=== PATIENT | male | born 1975 | race Two or more races ===

== ENCOUNTER 2018-08-21 20:17 | Inpatient (IN) | payer OTHER ==
[~2018-08-21] VITALS: Ht 180.3 cm; Wt 81.8 kg
[2018-08-21] MEDS ORDERED: IV NS 0.9% 1,000 ML BAG IV ONE (20:30)
[2018-08-21 20:34] LABS: APPEARANCE,URINE Clear (CLEAR); BILIRUBIN,URINE Negative (NEGATIVE); BLOOD, URINE Negative Ery/uL (NEGATIVE); COLOR,URINE Dark (YELLOW); KETONES,URINE Negative (NEGATIVE); LEUKOCYTE ESTERASE ,URINE Negative (NEGATIVE); NITRITE, URINE Negative (NEGATIVE); PH,URINE 5.5 (5.0-8.0); PROTEIN,URINE Trace mg/dl (NEGATIVE); UGLUCOSE Negative (NEGATIVE); UROBILINOGEN,URINE 0.2 EU/dL (0.2)
[2018-08-21 20:44] LABS: BASOPHILS % (AUTO) 0.1 % (0.0-2.0); EOSINOPHILS % (AUTO) 0.2 % (0.0-6.0); HEMATOCRIT 41 % (39-51); HEMOGLOBIN 13.9 g/dL (13.5-17.5); LYMPHOCYTES # (AUTO) 2.6 /CMM (0.8-4.8); LYMPHOCYTES % (AUTO) 48.4 % (20.0-44.0); MEAN CORPUSCULAR HGB CONC 34 g/dl (31.0-36.0); MEAN CORPUSCULAR VOLUME 89 fL (80-96); MONOCYTES # (AUTO) 0.4 /CMM (0.1-1.30); MONOCYTES % (AUTO) 7.5 % (2.0-12.0); NEUTROPHILS # (AUTO) 2.4 /CMM (1.8-8.9); NEUTROPHILS % (AUTO) 43.8 % (43.0-81.0); PLATELET COUNT (AUTO) 179 /CMM (150-450); RED BLOOD CELL COUNT(AUTO) 4.59 MIL/uL (4.5-6.0); WHITE BLOOD COUNT (AUTO) 5.4 K/uL (4.3-11.0)
[2018-08-21 21:09] LABS: CALCIUM, SERUM 8.9 mg/dL (8.5-10.1); CARBON DIOXIDE 26 mmol/L (21-32); CHLORIDE 104 mmol/L (98-107); CREATININE 1.3 mg/dL (0.6-1.3); GLUCOSE 136 mg/dL (74-106); POTASSIUM 3.9 mmol/L (3.5-5.1); SODIUM SERUM 141 mmol/L (136-145); UREA NITROGEN, BLOOD 21 mg/dL (7-18)
[2018-08-21 21:22] LABS: ALANINE AMINOTRANSFERASE 27 U/L (12-78); ALBUMIN 3.8 g/dL (3.4-5.0); ALCOHOL, BLOOD < 3 mg/dL (0-0); ALKALINE PHOSPHATASE 62 U/L (46-116); ASPARTATE AMINOTRANSFERASE 32 U/L (15-37); BILIRUBIN,DIRECT 0.1 mg/dL (0.0-0.2); BILIRUBIN,TOTAL 0.4 mg/dL (0.2-1.0); TOTAL PROTEIN, SERUM 7.4 g/dL (6.4-8.2)
[2018-08-21 21:27] LABS: SALICYLATE 1.4 mg/dL (2.8-20.0)
[2018-08-21 21:29] LABS: ACETAMINOPHEN 379 ug/ml (10-30)
[2018-08-21] MEDS ORDERED: ACETYLCYSTEINE IV 6,000 MG/30 ML VIAL IV ONE (21:39)
[2018-08-21 21:52] LABS: RBC,URINE 0-2 /HPF (0-2)
[2018-08-21 21:53] LABS: BACTERIA,URINE Rare /HPF (None Seen); MUCUS,URINE Few /LPF (None Seen); SQUAMOUS EPITHELIAL CELL,UR Few /HPF (None Seen); URINE AMORPHOUS URATE Few /HPF (None Seen); WBC,URINE 0-2 /HPF (0-3)
[2018-08-21] MEDS: ACETYLCYSTEINE 20% ORAL SOLN 6,000 MG/30 ML VIAL PO ONE ×2 (22:00→22:02)
[2018-08-21] MEDS ORDERED: ACETYLCYSTEINE 20% ORAL SOLN 6,000 MG/30 ML VIAL PO ONE (22:00)
[2018-08-21] MEDS ORDERED: LAMO200T2 PO (22:51)
[2018-08-21] MEDS ORDERED: DULO30CA2 PO (22:51)
[2018-08-21] MEDS ORDERED: QUET200T PO ×2 (22:51)
[2018-08-21 23:00] VITALS: BP 96/69
[2018-08-21 23:30] VITALS: BP 92/52
[2018-08-21] MEDS ORDERED: ONDANSETRON HCL/PF 4 MG/2 ML VIAL IVP PRN (23:30)
[2018-08-21] MEDS: IV D5/ 0.9% NACL 1,000 ML IV PRN (23:46)
[2018-08-22] VITALS (33 sets, daily range): BP systolic 89–158; BP diastolic 47–108
[2018-08-22] MEDS ORDERED: ACETYLCYSTEINE 20% SOLN 800 MG/4 ML VIAL ONE ×3 (01:43→23:53)
[2018-08-22] MEDS ORDERED: ACETYLCYSTEINE 20% ORAL SOLN 6,000 MG/30 ML VIAL PO SCH (02:00)
[2018-08-22] MEDS ORDERED: ACETYLCYSTEINE IV 12,000 MG in IV D5W 200 ML IV ONE (02:00)
[2018-08-22] MEDS ORDERED: ACETYLCYSTEINE IV 6,000 MG/30 ML VIAL IV ONE (02:15)
[2018-08-22] MEDS ORDERED: ACETYLCYSTEINE IV 4,000 MG in IV D5W 500 ML IV ONE (03:00)
[2018-08-22 04:46] LABS: BASOPHILS % (AUTO) 0.2 % (0.0-2.0); HEMATOCRIT 38 % (39-51); HEMOGLOBIN 13.1 g/dL (13.5-17.5); LYMPHOCYTES # (AUTO) 1.8 /CMM (0.8-4.8); LYMPHOCYTES % (AUTO) 38.7 % (20.0-44.0); MEAN CORPUSCULAR HGB CONC 34 g/dl (31.0-36.0); MEAN CORPUSCULAR VOLUME 89 fL (80-96); MONOCYTES # (AUTO) 0.3 /CMM (0.1-1.30); MONOCYTES % (AUTO) 7.2 % (2.0-12.0); NEUTROPHILS # (AUTO) 2.6 /CMM (1.8-8.9); NEUTROPHILS % (AUTO) 53.9 % (43.0-81.0); PLATELET COUNT (AUTO) 164 /CMM (150-450); RED BLOOD CELL COUNT(AUTO) 4.26 MIL/uL (4.5-6.0); WHITE BLOOD COUNT (AUTO) 4.8 K/uL (4.3-11.0)
[2018-08-22 05:00] LABS: ALBUMIN 3.1 g/dL (3.4-5.0); BILIRUBIN,TOTAL 0.5 mg/dL (0.2-1.0); CALCIUM, SERUM 8.1 mg/dL (8.5-10.1); CREATININE 1.1 mg/dL (0.6-1.3); PHOSPHORUS 1.8 mg/dL (2.5-4.9); POTASSIUM 3.9 mmol/L (3.5-5.1); TOTAL PROTEIN, SERUM 6.4 g/dL (6.4-8.2)
[2018-08-22 05:15] LABS: THYROID STIMULATING HORMONE 1.446 uIU/mL (0.358-3.74)
[2018-08-22] MEDS ORDERED: ACETYLCYSTEINE IV 8,000 MG in IV D5W 1,000 ML IV ONE (07:00)
[2018-08-22] MEDS: FAMOTIDINE/PF INJ 20 MG/2 ML VIAL IV SCH ×2 (10:14→21:21)
[2018-08-22] MEDS ORDERED: Sodium Phosphate 15 MMOL in IV D5W 250 ML IV ONE (13:00)
[2018-08-22] MEDS: ENSURE ENLIVE CHOC 237 ML CAN PO SCH (19:00)
[2018-08-22] MEDS: IV D5/ 0.9% NACL 1,000 ML IV PRN (19:48)
[2018-08-22] MEDS: QUETIAPINE FUMARATE 100 MG TABLET PO SCH (21:21)
[2018-08-22 22:48] LABS: BILIRUBIN,DIRECT 0.2 mg/dL (0.0-0.2); BILIRUBIN,TOTAL 0.8 mg/dL (0.2-1.0); TOTAL PROTEIN, SERUM 6.3 g/dL (6.4-8.2)
[2018-08-23] VITALS (24 sets, daily range): BP systolic 104–148; BP diastolic 48–111
[2018-08-23] MEDS ORDERED: ACETYLCYSTEINE IV 6,000 MG/30 ML VIAL IV ONE ×2 (00:12→18:30)
[2018-08-23 05:41] LABS: CALCIUM, SERUM 7.8 mg/dL (8.5-10.1); CREATININE 1.1 mg/dL (0.6-1.3); PHOSPHORUS 3.2 mg/dL (2.5-4.9); POTASSIUM 3.6 mmol/L (3.5-5.1)
[2018-08-23] MEDS: IV D5/ 0.9% NACL 1,000 ML IV PRN ×2 (06:08→18:49)
[2018-08-23] MEDS: ENSURE ENLIVE CHOC 237 ML CAN PO SCH ×3 (09:18→17:00)
[2018-08-23] MEDS: FAMOTIDINE/PF INJ 20 MG/2 ML VIAL IV SCH ×2 (09:21→21:24)
[2018-08-23] MEDS: LORAZEPAM INJ 2 MG/ML VIAL IV PRN (12:49)
[2018-08-23] MEDS: QUETIAPINE FUMARATE 100 MG TABLET PO SCH ×2 (15:09→21:24)
[2018-08-23 16:12] LABS: ALBUMIN 2.9 g/dL (3.4-5.0); BILIRUBIN,DIRECT 0.1 mg/dL (0.0-0.2); BILIRUBIN,TOTAL 0.6 mg/dL (0.2-1.0)
[2018-08-23] MEDS ORDERED: ACETYLCYSTEINE IV 8,000 MG in IV D5W 1,000 ML IV ONE ×3 (19:00)
[2018-08-23] MEDS ORDERED: FINA5TAB11 PO (21:20)
[2018-08-23] MEDS ORDERED: BICT1TAB PO (21:20)
[2018-08-23] MEDS ORDERED: SIME125C81 PO (21:20)
[2018-08-23] MEDS ORDERED: HYDR-3026 PO (21:20)
[2018-08-23] MEDS ORDERED: POLY30DR EACHEYE (21:20)
[2018-08-23] MEDS ORDERED: ONDA4TAB5 PO (21:20)
[2018-08-24] VITALS (8 sets, daily range): BP systolic 99–135; BP diastolic 71–85
[2018-08-24] MEDS: LORAZEPAM INJ 2 MG/ML VIAL IV PRN (02:44)
[2018-08-24] MEDS: QUETIAPINE FUMARATE 100 MG TABLET PO SCH ×2 (08:54→21:30)
[2018-08-24] MEDS: FAMOTIDINE/PF INJ 20 MG/2 ML VIAL IV SCH ×2 (08:54→21:29)
[2018-08-24] MEDS: ENSURE ENLIVE CHOC 237 ML CAN PO SCH ×3 (08:57→16:02)
[2018-08-24 11:17] LABS: BASOPHILS % (AUTO) 0.7 % (0.0-2.0); EOSINOPHILS % (AUTO) 1.7 % (0.0-6.0); HEMATOCRIT 35 % (39-51); HEMOGLOBIN 12.1 g/dL (13.5-17.5); LYMPHOCYTES # (AUTO) 0.8 /CMM (0.8-4.8); LYMPHOCYTES % (AUTO) 32.9 % (20.0-44.0); MEAN CORPUSCULAR HGB CONC 35 g/dl (31.0-36.0); MEAN CORPUSCULAR VOLUME 88 fL (80-96); MONOCYTES # (AUTO) 0.2 /CMM (0.1-1.30); MONOCYTES % (AUTO) 7.8 % (2.0-12.0); NEUTROPHILS # (AUTO) 1.5 /CMM (1.8-8.9); NEUTROPHILS % (AUTO) 56.9 % (43.0-81.0); PLATELET COUNT (AUTO) 143 /CMM (150-450); RED BLOOD CELL COUNT(AUTO) 3.99 MIL/uL (4.5-6.0); WHITE BLOOD COUNT (AUTO) 2.6 K/uL (4.3-11.0)
[2018-08-24 11:25] LABS: POTASSIUM 4.2 mmol/L (3.5-5.1)
[2018-08-24 11:31] LABS: ALBUMIN 3.1 g/dL (3.4-5.0); BILIRUBIN,DIRECT 0.2 mg/dL (0.0-0.2); BILIRUBIN,TOTAL 0.5 mg/dL (0.2-1.0); TOTAL PROTEIN, SERUM 6.2 g/dL (6.4-8.2)
[2018-08-24 12:54] LABS: EOSINOPHILS % (MANUAL) 3 % (0-4); LYMPHOCYTES % (MANUAL) 27 % (16-48); MONOCYTES % (MANUAL) 4 % (0-11.0); NEUTROPHILS % (MANUAL) 66 (42-76)
[2018-08-24 22:38] LABS: ALANINE AMINOTRANSFERASE 252 U/L (12-78); ASPARTATE AMINOTRANSFERASE 194 U/L (15-37)
[2018-08-25] MEDS ORDERED: ACETYLCYSTEINE IV 8,000 MG in IV D5W 1,000 ML IV SCH (00:30)
[2018-08-25] MEDS ORDERED: ACETYLCYSTEINE IV 6,000 MG/30 ML VIAL IV ONE (00:50)
[2018-08-25 06:46] LABS: BASOPHILS % (AUTO) 0.6 % (0.0-2.0); HEMATOCRIT 37 % (39-51); HEMOGLOBIN 12.8 g/dL (13.5-17.5); LYMPHOCYTES # (AUTO) 1.1 /CMM (0.8-4.8); LYMPHOCYTES % (AUTO) 50.2 % (20.0-44.0); MEAN CORPUSCULAR HGB CONC 35 g/dl (31.0-36.0); MEAN CORPUSCULAR VOLUME 88 fL (80-96); MONOCYTES # (AUTO) 0.2 /CMM (0.1-1.30); MONOCYTES % (AUTO) 10.8 % (2.0-12.0); NEUTROPHILS # (AUTO) 0.8 /CMM (1.8-8.9); NEUTROPHILS % (AUTO) 35.4 % (43.0-81.0); PLATELET COUNT (AUTO) 152 /CMM (150-450); RED BLOOD CELL COUNT(AUTO) 4.21 MIL/uL (4.5-6.0); WHITE BLOOD COUNT (AUTO) 2.1 K/uL (4.3-11.0)
[2018-08-25 06:51] LABS: CALCIUM, SERUM 8.8 mg/dL (8.5-10.1); POTASSIUM 3.7 mmol/L (3.5-5.1)
[2018-08-25 07:01] LABS: BILIRUBIN,DIRECT 0.1 mg/dL (0.0-0.2); BILIRUBIN,TOTAL 0.4 mg/dL (0.2-1.0); MAGNESIUM 1.6 mg/dL (1.8-2.4); PHOSPHORUS 3.7 mg/dL (2.5-4.9); TOTAL PROTEIN, SERUM 6.4 g/dL (6.4-8.2)
[2018-08-25 08:00] VITALS: BP 123/84
[2018-08-25] MEDS: FAMOTIDINE/PF INJ 20 MG/2 ML VIAL IV SCH ×2 (09:15→20:31)
[2018-08-25] MEDS: ENSURE ENLIVE CHOC 237 ML CAN PO SCH ×3 (09:15→16:56)
[2018-08-25] MEDS: QUETIAPINE FUMARATE 100 MG TABLET PO SCH ×2 (09:17→21:43)
[2018-08-25] MEDS: NICOTINE PATCH (21MG) 21 MG PATCH.TD24 TD SCH (10:17)
[2018-08-25] MEDS: Magnesium 1GM/D5W 100ML PREMIX 100 ML IV SCH ×2 (11:58→13:02)
[2018-08-25] MEDS ORDERED: LamoTRIgine 100 MG TABLET PO SCH (12:30)
[2018-08-25] MEDS: LamoTRIgine 25 MG TABLET PO SCH (13:10)
[2018-08-25 16:00] VITALS: BP 132/74
[2018-08-25] MEDS ORDERED: ACETYLCYSTEINE IV 4,000 MG in IV D5W 500 ML IV SCH (16:00)
[2018-08-25 20:00] VITALS: BP 132/80
[2018-08-25] MEDS: BIKTARVY PO SCH (21:43)
[2018-08-25 23:41] LABS: ALBUMIN 3.2 g/dL (3.4-5.0); BILIRUBIN,DIRECT 0.1 mg/dL (0.0-0.2); BILIRUBIN,TOTAL 0.4 mg/dL (0.2-1.0); TOTAL PROTEIN, SERUM 6.7 g/dL (6.4-8.2)
[2018-08-26 07:12] LABS: BASOPHILS % (AUTO) 0.5 % (0.0-2.0); EOSINOPHILS % (AUTO) 1.8 % (0.0-6.0); HEMATOCRIT 39 % (39-51); HEMOGLOBIN 13.2 g/dL (13.5-17.5); LYMPHOCYTES # (AUTO) 1.4 /CMM (0.8-4.8); LYMPHOCYTES % (AUTO) 47.1 % (20.0-44.0); MEAN CORPUSCULAR HGB CONC 34 g/dl (31.0-36.0); MEAN CORPUSCULAR VOLUME 88 fL (80-96); MONOCYTES # (AUTO) 0.4 /CMM (0.1-1.30); MONOCYTES % (AUTO) 12.7 % (2.0-12.0); NEUTROPHILS # (AUTO) 1.1 /CMM (1.8-8.9); NEUTROPHILS % (AUTO) 37.9 % (43.0-81.0); PLATELET COUNT (AUTO) 172 /CMM (150-450); RED BLOOD CELL COUNT(AUTO) 4.42 MIL/uL (4.5-6.0); WHITE BLOOD COUNT (AUTO) 2.9 K/uL (4.3-11.0)
[2018-08-26 07:31] LABS: ALBUMIN 3.4 g/dL (3.4-5.0); BILIRUBIN,DIRECT 0.1 mg/dL (0.0-0.2); BILIRUBIN,TOTAL 0.4 mg/dL (0.2-1.0); CALCIUM, SERUM 9.3 mg/dL (8.5-10.1); CREATININE 1.3 mg/dL (0.6-1.3); MAGNESIUM 1.9 mg/dL (1.8-2.4); POTASSIUM 4.1 mmol/L (3.5-5.1); TOTAL PROTEIN, SERUM 7.1 g/dL (6.4-8.2)
[2018-08-26 08:00] VITALS: BP 114/74
[2018-08-26] MEDS: FAMOTIDINE/PF INJ 20 MG/2 ML VIAL IV SCH ×2 (08:30→21:13)
[2018-08-26] MEDS: ENSURE ENLIVE CHOC 237 ML CAN PO SCH ×3 (08:30→17:31)
[2018-08-26] MEDS: LamoTRIgine 25 MG TABLET PO SCH (08:31)
[2018-08-26] MEDS: NICOTINE PATCH (21MG) 21 MG PATCH.TD24 TD SCH (08:32)
[2018-08-26] MEDS: QUETIAPINE FUMARATE 100 MG TABLET PO SCH ×2 (08:32→21:14)
[2018-08-26 16:00] VITALS: BP 128/81
[2018-08-26 20:00] VITALS: BP 134/77
[2018-08-26 20:10] VITALS: BP 134/77
[2018-08-26] MEDS: BIKTARVY PO SCH (21:14)
[2018-08-26] MEDS: MORPHINE SULFATE INJ 2 MG/ML DISP.SYRIN IV PRN (21:22)
[2018-08-27] MEDS: MORPHINE SULFATE INJ 2 MG/ML DISP.SYRIN IV PRN ×2 (03:59→08:57)
[2018-08-27 08:40] LABS: ALBUMIN 3.7 g/dL (3.4-5.0); BILIRUBIN,DIRECT 0.1 mg/dL (0.0-0.2); BILIRUBIN,TOTAL 0.5 mg/dL (0.2-1.0); TOTAL PROTEIN, SERUM 7.7 g/dL (6.4-8.2)
[2018-08-27] MEDS: NICOTINE PATCH (21MG) 21 MG PATCH.TD24 TD SCH ×2 (09:00→09:01)
[2018-08-27] MEDS: QUETIAPINE FUMARATE 100 MG TABLET PO SCH (09:01)
[2018-08-27] MEDS: LamoTRIgine 25 MG TABLET PO SCH (09:01)
[2018-08-27] MEDS: FAMOTIDINE/PF INJ 20 MG/2 ML VIAL IV SCH (09:01)
[2018-08-27] MEDS: ENSURE ENLIVE CHOC 237 ML CAN PO SCH ×2 (09:02→12:02)
[2018-08-27] MEDS: IV D5/ 0.9% NACL 1,000 ML IV PRN (10:06)
[2018-08-27 13:43] VITALS: BP 113/66
[2018-08-27] MEDS ORDERED: LACT-246 PO (17:07)
[2018-08-27] MEDS ORDERED: NICO-676 TD (17:07)
[2018-09-08] MEDS ORDERED: LamoTRIgine 25 MG TABLET PO SCH (09:00)
[2018-09-22] MEDS ORDERED: LamoTRIgine 100 MG TABLET PO SCH (09:00)
[2018-09-29] MEDS ORDERED: LamoTRIgine 100 MG TABLET PO SCH (09:00)
[2018-10-06] MEDS ORDERED: LamoTRIgine 100 MG TABLET PO SCH (09:00)
== END 2018-08-27 15:41 | DRG 917 ==
LOC: ER 20:17 → ICU 22:25 → MED 08-24 04:03
PROVIDERS: ADMIT Internal Medicine; ATTEND Internal Medicine
DX: T39.1X2A Poisoning by 4-Aminophenol derivatives, intentional self-harm, initial encounter (principal); G92 Toxic encephalopathy; N17.0 Acute kidney failure with tubular necrosis; Y92.89 Other specified places as the place of occurrence of the external cause; F31.9 Bipolar disorder, unspecified; F25.9 Schizoaffective disorder, unspecified; E66.9 Obesity, unspecified; Z68.34 Body mass index [BMI] 34.0-34.9, adult; Z91.5 Personal history of self-harm; F50.9 Eating disorder, unspecified; F41.9 Anxiety disorder, unspecified; G40.909 Epilepsy, unspecified, not intractable, without status epilepticus; R74.0 Nonspecific elevation of levels of transaminase and lactic acid dehydrogenase [LDH]
CPT/HCPCS: 36415; 80048-TC; 80053-TC; 80061-TC; 80076-TC; 80305; 81000-TC; 82140-TC; 83735-TC; 84100-TC; 84443-TC; 84450-TC; 84460-TC; 85025-TC; 85610-TC; 87081-TC; A9563; G0378; G0480; J0132; J2060; J2270; J2405; J3475; J3490; J7030; J7042; J7060; J7070

== ENCOUNTER 2018-08-27 14:23 | Inpatient (IN) | payer OTHER ==
[~2018-08-27] VITALS: Ht 180.3 cm; Wt 70.3 kg
[~2018-08-27 14:23] MED LIST: BICT1TAB PO; DULO30CA2 PO; FINA5TAB11 PO; HYDR-3026 PO; LAMO200T2 PO; ONDA4TAB5 PO; POLY30DR EACHEYE; QUET200T PO; SIME125C81 PO
[2018-08-27] MEDS ORDERED: ACETAMINOPHEN 325 MG TABLET PO PRN (17:00)
[2018-08-27] MEDS ORDERED: MAGNESIUM HYDROXIDE 30 ML UDC PO PRN (17:00)
[2018-08-27] MEDS ORDERED: MAG HYDROX/AL HYDROX/SIMETH 30 ML UDC PO PRN (17:00)
[2018-08-27] MEDS ORDERED: NICO-676 TD (17:07)
[2018-08-27] MEDS ORDERED: LACT-246 PO (17:07)
[2018-08-27 17:59] VITALS: BP 122/56
--- NOTE | 2018-08-27 18:25 | NUR ---
ANODE WORKER NOTE:PATIENT IS A 43 YEAR OLD MALE BROUGHT IN TO GPS ON A 5250 DTS. HOLD STATES, "PATIENT WITH BIPOLAR ADMITTED DUE TO TYLENOL OD, WAS IN ICU". PATIENT DENIES ANY SI/HI, VAH AT THIS ANTHONY. PATIENT IS DEPRESSED WITH A BLUNTED, FLAT AFFECT. ALERT AND ORIENTED X3, ABLE TO FOLLOW COMMANDS. AMBULATORY. ABLE TO CONCENTRATE ON TOPICS AND CONVERSATION. CLEAR SPEECH. APPROPRIATE APPEARANCE. PATIENT IS COMPLIANT WITH PLAN OF CARE. SKIN INTACT. VSS. NO ACUTE DISTRESS NOTED. NO COMPLAINTS. UPON FACE TO FACE ASSESSMENT, PATIENT HANDBOOK WAS GIVEN WITH PATIENT RIGHTS AND GUIDE TO PRESCRIPTIONS. PATIENT HAS A PSYCHIATRIC DX OF BIPOLAR DISORDER NOS, ANXIETY DISORDER NOS AND SCHIZOAFFECTIVE DISORDER. PATIENT HAS A MEDICAL HISTORY OF ACUTE ACETAMINOPHEN TOXICITY W/ SUICIDE ATTEMPT RESULTING IN TRANSAMINITIS & TOXIC ENCEPHALOPATHY, VASOMOTOR NEPHROPATHY AND SEIZURE DISORDER. CONSENTS SIGNED. MRSA PREVIOUSLY COMPLETE AT [facility]. NKA. FULL CODE. WILL CONTINUE TO MONITOR PATIENT Q15 MINUTES FOR SAFETY AND BEHAVIOR PER GPS [employer].
--- NOTE | 2018-08-27 19:30 | NUR ---
GPS RN NOTE, RECEIVED PATIENT AWAKE AND IN BED, NO S/S OR COMPLAINTS OF PAIN AT THIS TIME. PATIENT IS DISPLAYING NO S/S OF APPARENT DISTRESS AT THIS TIME. PATIENT BREATHING IS UNLABORED WITH EQUAL RISE AND FALL OF THE CHEST. PATIENT IS ALERT AND ORIENTED X 3 ON ROOM AIR WITH A SPO2 OF 96 %. PATIENT IS MED COMPLAINT, ANXIOUS, COOPERATIVE, AND NEEDS REORIENTATION. PATIENT DENIES SUICIDE AND HOMICIDAL IDEATIONS AT THIS TIME. PATIENT ASSISTED WITH TURNING AND REPOSITIONING Q2HR AND PRN FOR COMFORT AND CIRCULATION. PATIENT HAS NO NEEDS AT THIS TIME. PATIENT EDUCATED ON THE USE OF THE CALL [place]. PATIENT BED SIDE RAILS ARE UP X 2 FOR SAFETY, BED IS LOCKED, AND LOW WILL CONTINUE TO MONITOR AND MAINTAIN SAFETY.
[2018-08-27] MEDS ORDERED: CARBOXYMETHYLCELLULOSE SODIUM 0.4 ML DROPERETTE EACHEYE PRN (20:00)
[2018-08-27 20:21] VITALS: BP 118/78
[2018-08-27] MEDS: LORAZEPAM 0.5 MG TABLET PO PRN (21:20)
--- NOTE | 2018-08-27 21:20 | NUR ---
GPS RN NOTE, PATIENT HAS A COMPLAINT OF FEELING ANXIOUS AND IS REQUESTING ATIVAN AT THIS TIME. PATIENT VITAL SIGNS ARE STABLE. GAVE ATIVAN 0.5MG PO Q6HR PRN ORDERED. WILL REASSESS FOR ANXIETY AND I WILL CONTINUE TO MONITOR THIS PATIENT.
[2018-08-27] MEDS: TEMAZEPAM 7.5 MG CAPSULE PO PRN (21:24)
--- NOTE | 2018-08-27 21:24 | NUR ---
GPS RN NOTE, PATIENT HAS A COMPLAINT OF NOT BEING ABLE TO SLEEP AND IS REQUESTING RESTORIL AT THIS TIME. PATIENT VITAL SIGNS ARE STABLE. GAVE RESTORIL 7.5 MG PO HS PRN ORDERED. WILL REASSESS FOR INSOMNIA AND I WILL CONTINUE TO MONITOR THIS PATIENT.
[2018-08-28] MEDS: ENSURE ENLIVE 237 ML LIQUID (VANILLA) PO SCH ×3 (06:00→14:01)
[2018-08-28 08:00] VITALS: BP 106/65
[2018-08-28] MEDS: LORAZEPAM 0.5 MG TABLET PO PRN (08:54)
[2018-08-28] MEDS: FINASTERIDE (5 MG) 5 MG TABLET PO SCH (09:14)
[2018-08-28] MEDS: NICOTINE PATCH (14MG) 14 MG PATCH.TD24 TD SCH (09:14)
--- NOTE | 2018-08-28 13:59 | NUR ---
ZAINA called the pts , Dc ([phone]), and went over the initial discharge and treatment plan. It was discussed that the pt may be transferred to [facility] once the pt has his PC Hearing and that from there the pt will go to [place] to acquire the rest of his belongings before returning to [place].
[2018-08-28] MEDS: QUETIAPINE FUMARATE 100 MG TABLET PO SCH ×2 (14:00→22:17)
[2018-08-28 16:00] VITALS: BP 126/89
--- NOTE | 2018-08-28 16:01 | NUR ---
Initial Discharge Plan: Pt currently resides at [address] [place] [address], [id number]; ([phone]). Per pt, he would like to return to his home with his . SW will work with the pt and the MD regarding appropriate discharge planning. SW will form a safe and proper discharge plan.
[2018-08-28] MEDS: LITHIUM CARBONATE 150 MG CAPSULE PO SCH (16:30)
[2018-08-28 19:58] VITALS: BP 114/70
[2018-08-28] MEDS: [UNRECOGNIZED DRUG - OTHER] PO SCH (22:18)
[2018-08-29] MEDS: ENSURE ENLIVE 237 ML LIQUID (VANILLA) PO SCH ×3 (06:00→14:00)
[2018-08-29 08:00] VITALS: BP 100/67
[2018-08-29] MEDS: FINASTERIDE (5 MG) 5 MG TABLET PO SCH (08:45)
[2018-08-29] MEDS: QUETIAPINE FUMARATE 100 MG TABLET PO SCH ×3 (08:45→21:11)
[2018-08-29] MEDS: LORAZEPAM 0.5 MG TABLET PO PRN (08:45)
[2018-08-29] MEDS: NICOTINE PATCH (14MG) 14 MG PATCH.TD24 TD SCH (08:48)
--- NOTE | 2018-08-29 10:24 | NUR ---
PC Hearing Notification: SW called the pts , Dc ([phone]), and informed him about the hearing and what it entails. The possible transfer to [facility] was also discussed. Pts stated that he would like the pt to be transferred there to continue his treatment.
--- NOTE | 2018-08-29 10:27 | NUR ---
ZAINA called Sharif ([phone]), pts therapist at [facility], and informed him that the pts belongings need to be transferred here. He stated that he will talk to his cnc lathe programmer and then go from there.
--- NOTE | 2018-08-29 14:10 | NUR ---
SW conducted a substance abuse intervention with the pt regarding his opiate and benzodiazepine abuse.
[2018-08-29 16:00] VITALS: BP 123/75
--- NOTE | 2018-08-29 16:00 | NUR ---
NURSE NOTE PT SPEND TIME IN DINNER ROOM, SPEND TIME WITH ACTIVITY, PT DENIED SI THOUGHT OR PLAN
[2018-08-29] MEDS: LITHIUM CARBONATE 150 MG CAPSULE PO SCH (17:17)
[2018-08-29 20:00] VITALS: BP 104/64
[2018-08-29] MEDS: [UNRECOGNIZED DRUG - OTHER] PO SCH (21:12)
[2018-08-30] MEDS: ENSURE ENLIVE 237 ML LIQUID (VANILLA) PO SCH ×3 (06:00→14:18)
[2018-08-30 08:00] VITALS: BP 99/60
[2018-08-30] MEDS: QUETIAPINE FUMARATE 100 MG TABLET PO SCH ×3 (08:53→21:38)
[2018-08-30] MEDS: FINASTERIDE (5 MG) 5 MG TABLET PO SCH (08:53)
[2018-08-30] MEDS: LORAZEPAM 0.5 MG TABLET PO PRN (08:53)
[2018-08-30] MEDS: NICOTINE PATCH (14MG) 14 MG PATCH.TD24 TD SCH (08:54)
--- NOTE | 2018-08-30 09:00 | NUR ---
RN-CO: Patient was seen and examined by Dr Conley and ordered to " continue 5250 hold and transfer the patient to [facility] for continuity of care. Next of kin is aware.
--- NOTE | 2018-08-30 09:00 | NUR ---
NURSE NOTE RECEIVED PT SLEEPING IN STABLE CONDITION NO DISTRESS NOTED
--- NOTE | 2018-08-30 10:15 | NUR ---
ZAINA called Zulma ([phone]) at Intake and she informed the SW to fax over paperwork for the pt to the fax number: [phone].
--- NOTE | 2018-08-30 12:52 | NUR ---
ZAINA called the pts , Dc ([phone]), and informed him that the hearing was upheld and that the SW is currently working on transferring the pt to [facility].
--- NOTE | 2018-08-30 12:53 | NUR ---
ZAINA faxed a referral to [facility] to the fax number: [phone].
--- NOTE | 2018-08-30 14:19 | NUR ---
Car from [facility] ([phone]) called the SW and stated that he wanted the pts labs faxed over as well to the fax number: [phone].
--- NOTE | 2018-08-30 14:20 | NUR ---
ZAINA faxed additional paperwork to [facility] Int[facility] to the fax number: [phone].
--- NOTE | 2018-08-30 14:21 | NUR ---
Car from [facility] ([phone]) called the SW and inquired about one of the labs regarding the pts liver. SW transferred the call to the Charge Nurse, Xiomy, due to this being out of the scope of practice for the SW.
--- NOTE | 2018-08-30 14:23 | NUR ---
ZAINA spoke to Dr. Leslie, Director at [facility], and Dr. Rodriguez, accepting doctor at [facility] for this pt, and discussed the paperwork that was being sent over and the referral process. They stated that it does not seem like an appropriate transfer since the pt has been here for 3 days and has authorization until 09/02/18. ZAINA informed Dr. Conley, pts current psychiatrist, and ZAINA's supervisor customer services, Brittany Farr.
--- NOTE | 2018-08-30 14:49 | NUR ---
Car from [facility] ([phone]) called the SW and stated that the pt will not be accepted to their facility.
[2018-08-30 14:53] LABS: ALBUMIN 3.7 g/dL (3.4-5.0); BILIRUBIN,DIRECT 0.1 mg/dL (0.0-0.2); BILIRUBIN,TOTAL 0.4 mg/dL (0.2-1.0); TOTAL PROTEIN, SERUM 7.6 g/dL (6.4-8.2)
--- NOTE | 2018-08-30 14:54 | NUR ---
AZINA called the pts , Dc ([phone]), and informed him that the pt was not accepted to [facility] and he stated that he was going to have a friend of theirs assist with the discharge.
--- NOTE | 2018-08-30 15:00 | NUR ---
NURSE NOTE PT IN DINING ROOM READING BOOKS, DENIED SI OR SI THOUGHT, IN STABLE CONDITION
[2018-08-30 16:00] VITALS: BP 141/80
[2018-08-30] MEDS ORDERED: LITHIUM CARBONATE 150 MG CAPSULE PO SCH (17:00)
--- NOTE | 2018-08-30 19:39 | NUR ---
GPS RN NOTES RECEIVED PT ON BED. COMFORTABLE, RELAX. NO AGGRESSIVE BEHAVIOR NOTED.
[2018-08-30 20:02] VITALS: BP 110/60
[2018-08-30] MEDS: TEMAZEPAM 7.5 MG CAPSULE PO PRN (21:37)
[2018-08-30] MEDS: [UNRECOGNIZED DRUG - OTHER] PO SCH (21:37)
--- NOTE | 2018-08-30 23:47 | NUR ---
GPS RN NOTES PT SLEEPING COMFORTABLE, NO RESPIRATORY DISTRESS NOTED
--- NOTE | 2018-08-31 07:43 | NUR ---
gps rn notes called dietary for pts ensure.
[2018-08-31 08:00] VITALS: BP 105/56
[2018-08-31] MEDS: ENSURE ENLIVE 237 ML LIQUID (VANILLA) PO SCH ×3 (08:24→14:13)
[2018-08-31] MEDS: FINASTERIDE (5 MG) 5 MG TABLET PO SCH ×2 (08:51→09:26)
[2018-08-31] MEDS: QUETIAPINE FUMARATE 100 MG TABLET PO SCH ×3 (08:51→21:34)
[2018-08-31] MEDS: NICOTINE PATCH (14MG) 14 MG PATCH.TD24 TD SCH ×2 (08:51→09:00)
--- NOTE | 2018-08-31 09:30 | NUR ---
PT. ARGUING WTH NURSE OVER MEDS,REQUESTING 200 MG SEROQUEL BE GIVEN AT NOON INSTEAD OF IN 2 SEPARATE TIMES ORDERED.INFORMED PT. WOULD NEED TO SPEAK WITH PSYCHIATRIST REGARDING THIS.
--- NOTE | 2018-08-31 15:00 | NUR ---
DR. BURGOS SPOKE TO PT. REGARDING PSYCH MEDS.
[2018-08-31 16:00] VITALS: BP 108/59
[2018-08-31] MEDS: LITHIUM CARBONATE 150 MG CAPSULE PO SCH (17:30)
--- NOTE | 2018-08-31 18:23 | NUR ---
NO CHANGE IN STATUS,MED COMPLIANT.
[2018-08-31 20:06] VITALS: BP 132/79
[2018-08-31] MEDS: [UNRECOGNIZED DRUG - OTHER] PO SCH (21:34)
[2018-09-01] MEDS: ENSURE ENLIVE 237 ML LIQUID (VANILLA) PO SCH ×3 (06:00→14:05)
[2018-09-01 08:00] VITALS: BP 108/56
[2018-09-01] MEDS: LITHIUM CARBONATE 150 MG CAPSULE PO SCH ×3 (08:41→17:10)
[2018-09-01] MEDS: FINASTERIDE (5 MG) 5 MG TABLET PO SCH (08:41)
[2018-09-01] MEDS: QUETIAPINE FUMARATE 100 MG TABLET PO SCH ×3 (08:42→21:33)
[2018-09-01] MEDS: NICOTINE PATCH (14MG) 14 MG PATCH.TD24 TD SCH (08:42)
[2018-09-01 16:00] VITALS: BP 117/82
[2018-09-01 20:35] VITALS: BP 129/79
[2018-09-01] MEDS: [UNRECOGNIZED DRUG - OTHER] PO SCH (21:33)
[2018-09-02 08:00] VITALS: BP 104/58
[2018-09-02] MEDS: QUETIAPINE FUMARATE 100 MG TABLET PO SCH ×3 (08:00→21:32)
[2018-09-02] MEDS: NICOTINE PATCH (14MG) 14 MG PATCH.TD24 TD SCH ×2 (09:00→09:54)
[2018-09-02] MEDS: LITHIUM CARBONATE 150 MG CAPSULE PO SCH ×3 (09:54→17:00)
[2018-09-02] MEDS: FINASTERIDE (5 MG) 5 MG TABLET PO SCH (09:54)
[2018-09-02] MEDS: ENSURE ENLIVE 237 ML LIQUID (VANILLA) PO SCH ×3 (09:55→14:04)
[2018-09-02 16:00] VITALS: BP 132/85
--- NOTE | 2018-09-02 16:20 | NUR ---
ZAINA called the pts , Dc ([phone]), and informed him about the plan to transfer the pt to an inpatient setting and provided him with the options. The pt's stated that he agrees that the pt needs more help at this time.
--- NOTE | 2018-09-02 16:21 | NUR ---
UR Note: ZAINA conducted a review on the pts manager case management Latoya theodore ([phone]), and asked for an additional two days of authorization.
--- NOTE | 2018-09-02 16:22 | NUR ---
UR Note: Latoya ([phone]), pts daughter, called the SW back and stated that the pt was authorized for an additional two days and is now covered for 09/03 and 09/04. Addendum: 09/04/18 at 1600 by ROSHNI MAHAJAN Pts pillowcase turner NOT pts daughter.
--- NOTE | 2018-09-02 16:22 | NUR ---
ZAINA faxed a referral to [facility] with attention to Yaa to the fax number: [phone].
--- NOTE | 2018-09-02 16:24 | NUR ---
ZAINA called the pts father, Luis ([phone]), and informed him about the pts discharge plan. He was informed that the pts plan is to go to an inpatient treatment center.
--- NOTE | 2018-09-02 16:24 | NUR ---
Yaa called the SW and stated that the pt is scheduled for a phone assessment at 3pm with Tierra who will be giving him a call.
--- NOTE | 2018-09-02 16:25 | NUR ---
ZAINA called Frankie Morin ([phone]), pts Employee Assistance Program worker/friend, and informed him about the discharge plan of an inpatient treatment center. He stated his concerns dealing with the constant moving around for the pt. ZAINA stated that they can discuss this further the following morning due to her being off the clock now.
[2018-09-02 20:21] VITALS: BP 120/80
[2018-09-02] MEDS: [UNRECOGNIZED DRUG - OTHER] PO SCH (21:31)
[2018-09-02] MEDS: LamoTRIgine 25 MG TABLET PO SCH (21:31)
[2018-09-03] MEDS: ENSURE ENLIVE 237 ML LIQUID (VANILLA) PO SCH ×3 (06:20→12:35)
[2018-09-03 08:00] VITALS: BP 101/57
[2018-09-03] MEDS: QUETIAPINE FUMARATE 100 MG TABLET PO SCH ×3 (08:43→21:20)
[2018-09-03] MEDS: LITHIUM CARBONATE 150 MG CAPSULE PO SCH ×3 (08:43→16:54)
[2018-09-03] MEDS: FINASTERIDE (5 MG) 5 MG TABLET PO SCH (08:43)
[2018-09-03] MEDS: NICOTINE PATCH (14MG) 14 MG PATCH.TD24 TD SCH (08:44)
--- NOTE | 2018-09-03 10:16 | NUR ---
SW called [facility] and spoke to Harsha in Admissions who stated that the pt has been there previously and that he would like to return. He stated that the SW would have to send over paperwork and that will determine whether or not the pt can be accommodated on top of a phone assessment.
--- NOTE | 2018-09-03 10:29 | NUR ---
ZAINA faxed a referral to [facility] with attention to Izabel to the fax number: [phone].
--- NOTE | 2018-09-03 10:29 | NUR ---
SW called Frankie Morin ([phone]), pts Employee Assistance Program worker/friend, and discussed how the pt needs to focus on his mental health as well and that was why the recommendation was [facility] where the eating disorder is addressed as well as their secondary diagnoses and substance use.
--- NOTE | 2018-09-03 11:02 | NUR ---
SW called [facility] and left a voicemail for their intake to call the SW back regarding whether or not the pt can be readmitted.
--- NOTE | 2018-09-03 14:33 | NUR ---
Brianna ([phone]) called from [facility] and stated that the pt was not accepted to their facility because he does not meet criteria.
--- NOTE | 2018-09-03 14:34 | NUR ---
ZAINA returned the call for Sendy ([phone]) from [facility] and left her a voicemail stating that the SW would like to know if the pt can be readmitted.
--- NOTE | 2018-09-03 14:35 | NUR ---
SW returned the call of Yaa Hoover ([phone]) from [facility] and left her a voicemail stating that the pt does not have a 30 day supply of his medications at this time.
--- NOTE | 2018-09-03 15:35 | NUR ---
ZAINA called the pts , Dc ([phone]), and informed him that the pts medications need to be filled for a one month supply and he stated that he would attempt to figure out how that can be done.
[2018-09-03 16:00] VITALS: BP 115/69
[2018-09-03] MEDS ORDERED: ACETAMINOPHEN 325 MG TABLET PO PRN (20:00)
[2018-09-03 20:42] VITALS: BP 117/69
[2018-09-03] MEDS: [UNRECOGNIZED DRUG - OTHER] PO SCH (21:18)
[2018-09-03] MEDS: LamoTRIgine 25 MG TABLET PO SCH (21:19)
[2018-09-04] MEDS: ENSURE ENLIVE 237 ML LIQUID (VANILLA) PO SCH ×2 (06:11→08:00)
[2018-09-04 06:40] LABS: BASOPHILS % (AUTO) 0.4 % (0.0-2.0); EOSINOPHILS % (AUTO) 0.9 % (0.0-6.0); HEMATOCRIT 40 % (39-51); HEMOGLOBIN 13.9 g/dL (13.5-17.5); LYMPHOCYTES # (AUTO) 1.5 /CMM (0.8-4.8); LYMPHOCYTES % (AUTO) 46.6 % (20.0-44.0); MEAN CORPUSCULAR HGB CONC 35 g/dl (31.0-36.0); MEAN CORPUSCULAR VOLUME 88 fL (80-96); MONOCYTES # (AUTO) 0.4 /CMM (0.1-1.30); MONOCYTES % (AUTO) 12.9 % (2.0-12.0); NEUTROPHILS # (AUTO) 1.2 /CMM (1.8-8.9); NEUTROPHILS % (AUTO) 39.2 % (43.0-81.0); PLATELET COUNT (AUTO) 234 /CMM (150-450); RED BLOOD CELL COUNT(AUTO) 4.58 MIL/uL (4.5-6.0); WHITE BLOOD COUNT (AUTO) 3.1 K/uL (4.3-11.0)
[2018-09-04 06:44] LABS: CALCIUM, SERUM 9.4 mg/dL (8.5-10.1); CREATININE 1.1 mg/dL (0.6-1.3)
[2018-09-04 08:00] VITALS: BP 100/64
[2018-09-04] MEDS: FINASTERIDE (5 MG) 5 MG TABLET PO SCH (08:00)
[2018-09-04] MEDS: QUETIAPINE FUMARATE 100 MG TABLET PO SCH ×2 (08:00→12:07)
[2018-09-04] MEDS: NICOTINE PATCH (14MG) 14 MG PATCH.TD24 TD SCH (08:00)
[2018-09-04] MEDS: LITHIUM CARBONATE 150 MG CAPSULE PO SCH ×2 (08:00→12:07)
--- NOTE | 2018-09-04 10:05 | NUR ---
Yaa called the SW and informed her that the pt has a room available today and that he would just need to get his prescriptions before being admitted and the SW stated that the prescriptions were sent to the pharmacy.
--- NOTE | 2018-09-04 10:16 | NUR ---
ZAINA called the pts , Dc ([phone]), and informed him that the pt is going to be discharged today at 1pm to [facility]. Pts stated that he was grateful for this opportunity for this pt.
--- NOTE | 2018-09-04 10:42 | NUR ---
ZAINA called the pts father, Luis ([phone]), and informed him that the pt is going to be discharged today to [facility]. The pts parents stated that they accepted this placement and received the appropriate information for the facility to care for the pt.
--- NOTE | 2018-09-04 11:05 | NUR ---
RN-CO: DR WELCH ORDERED TO DISCONTINUE HOLD AND DISCHARGE PATIENT.
--- NOTE | 2018-09-04 13:34 | NUR ---
CERTIFIED MARINE MECHANIC NOTE: PATIENT IS A 42 YEAR OLD MALE THAT WAS DISCHARGED TO [facility] AT [address] [facility] [id number] . PATIENT IS COOPERATIVE WITH PLAN OF CARE AND COMPLIANT WITH MEDICATION MANAGEMENT. NO ACUTE DISTRESS NOTED. NO COMPLAINTS. DENIES SI/HI VAH AT THE TIME OF DISCHARGE. BEHAVIOR HAS IMPROVED. PSYCHIATRIC TREATMENT PLANS MET. MEDICAL TREATMENT PLANS DEFERRED FOR CONTINUAL MONITORING. EDUCATED PATIENT ABOUT EXIT CARE WITH COPY PROVIDED. RETURNED BELONGINGS TO PATIENT. MEDICATIONS RECONCILED WITH DR RICO AND DR WELCH WITH PSYCHIATRIC DISCHARGE ORDERS. PATIENT SIGNED DISHCARGE PAPERWORK. SKIN CHECK DONE. TO FOLLOW UP WITH PSYCHIATRIST DR FLYNN LOCATED AT [id number] [facility] [address] AND [facility] LOCATED AT [address] [facility] [address] IN 1 WEEK. PATIENT LEFT GPS SO UNIT ESCORTED BY GRAIN DRIER AT 1315.
--- NOTE | 2018-09-04 16:01 | NUR ---
UR Note: Latoya ([phone]), pts case fitter, called the SW and suggested Basil Swann ([phone]), as a suggestion for the pt but the SW stated that the pt was going to be discharged to [facility].
--- NOTE | 2018-09-04 16:03 | NUR ---
Discharge Note: Pt was discharged to [facility] located at [address], [place] [address]; . Pt was discharged at 1PM. Pt was transported via Uber after he stopped at [facility] located at [address] [place], [place]. Pt�s , Juan ([phone]), was notified. Upon discharge, the pt appeared to be in a euthymic mood and presented with a distressed affect. Pt denied both suicidal and homicidal ideation as well as auditory and visual hallucinations. Pt was provided with substance abuse and smoking cessation referrals. Pt will be under the care of his psychiatrist, Dr. Flores, located at [address], [place] [address]; and his telegraph service rater, Dr. Germain, located at [address], [place] [address]; . Substance Abuse Referrals [facility] [address] [place] [address] Tel. �[facility] �Primary Care �[facility] [address] [place] Provider �Mental Health Treatment �Tele-dermatology �HIV Services �Telemedicine Services [place] [address] [place] [address] [facility] [address] [place] [address] Smoking Cessation Referrals [facility] 800-LUNGUSA [employer] [phone]
--- NOTE | 2018-09-05 16:34 | NUR ---
UR Note: ZAINA called Latoya ([phone]), pts onsite case manager, and left a discharge clinical on her voicemail.
--- NOTE | 2018-09-13 13:25 | NUR ---
15 Day Substance Abuse Follow Up: Pt is exempt from the substance abuse follow up because the pt was discharged to an inpatient setting at [facility] at the [facility].
== END 2018-09-04 13:15 | disposition home or self-care (01) | DRG 885 ==
LOC: GPS 14:23
PROVIDERS: ADMIT Psychiatry & Neurology Psychosomatic Medicine; ATTEND Nurse Practitioner Acute Care
DX: F25.9 Schizoaffective disorder, unspecified (principal); F50.9 Eating disorder, unspecified; G40.909 Epilepsy, unspecified, not intractable, without status epilepticus; F41.9 Anxiety disorder, unspecified; Z68.21 Body mass index [BMI] 21.0-21.9, adult; T39.1X1D Poisoning by 4-Aminophenol derivatives, accidental (unintentional), subsequent encounter; Z91.5 Personal history of self-harm; Z79.899 Other long term (current) drug therapy; R74.0 Nonspecific elevation of levels of transaminase and lactic acid dehydrogenase [LDH]
CPT/HCPCS: 36415; 80048-TC; 80076-TC; 85025-TC